=== PATIENT | female | born 1985 | race Caucasian/White ===

== ENCOUNTER 2017-08-24 01:35 | Emergency (ER) | END 2017-08-24 03:57 | disposition home or self-care (01) ==

== ENCOUNTER 2017-09-29 15:37 | Emergency (ER) | END 2017-09-29 20:24 | disposition home or self-care (01) ==

== ENCOUNTER 2017-11-15 23:50 | Emergency (ER) | END 2017-11-16 01:18 | disposition home or self-care (01) ==